=== PATIENT | male | born 1995 | race Caucasian/White ===

== ENCOUNTER 2022-07-15 17:30 | Outpatient (CLI) | payer BC | END 2022-07-15 17:31 | disposition home or self-care (01) | LOC: SLEEPLAB 17:30 | PROVIDERS: ATTEND Internal Medicine | DX: G47.33 Obstructive sleep apnea (adult) (pediatric) (principal); R53.83 Other fatigue; R40.0 Somnolence; F32.A Depression, unspecified; F41.9 Anxiety disorder, unspecified; R06.83 Snoring | CPT/HCPCS: 95800 ==

== ENCOUNTER → 2022-08-27 | Outpatient (CLI) | payer BC | LOC: SLEEPLAB 19:00 | PROVIDERS: ATTEND Internal Medicine | DX: G47.33 Obstructive sleep apnea (adult) (pediatric) (principal); R53.83 Other fatigue; R40.0 Somnolence; F32.A Depression, unspecified; R06.83 Snoring | CPT/HCPCS: 95811 ==

== ENCOUNTER 2023-03-04 09:20 | Outpatient (CLI) | payer BC | END 2023-03-04 09:21 | disposition home or self-care (01) | LOC: NM 09:20 | PROVIDERS: ATTEND Urology | DX: R79.89 Other specified abnormal findings of blood chemistry (principal) | CPT/HCPCS: 78072; A9500 ==